=== PATIENT | female | born 1995 | race Caucasian/White ===

== ENCOUNTER → 2020-09-30 | Outpatient (CLI) | payer OTHER ==
[2020-09-30 14:00] LABS: HEMOGLOBIN 14.1 gm/dl (12.3-15.3); RED BLOOD COUNT 4.77 M/UL (4.00-5.10); WHITE BLOOD COUNT 8.9 K/UL (4.5-11.0)
[2020-09-30 14:29] LABS: BUN/CREATININE RATIO 15 (0-10)
== END ==
LOC: LAB 13:09
DX: R53.83 Other fatigue (principal); E66.3 Overweight
CPT/HCPCS: 36415; 80053; 80061; 82607; 83540; 84439; 84443; 85027; 93005

== ENCOUNTER 2021-07-24 23:03 | Emergency (ER) | payer OTHER ==
[2021-07-24 23:44] LABS: HEMOGLOBIN 14.7 gm/dl (12.3-15.3); RED BLOOD COUNT 4.88 M/UL (4.00-5.10); WHITE BLOOD COUNT 15.3 K/UL (4.5-11.0)
[2021-07-25 00:03] LABS: BUN/CREATININE RATIO 11 (0-10)
[2021-07-25] MEDS ORDERED: ZOFRAN4 MG PO (04:36)
[2021-07-25] MEDS ORDERED: OMNICEF 300 MG300 MG PO (04:36)
[2021-07-25] MEDS ORDERED: FLOMAX 0.4 MG0.4 MG PO (04:36)
[2021-07-25] MEDS ORDERED: TORADOL 10 MG T10 MG PO (04:36)
== END 2021-07-25 06:31 | disposition home or self-care (01) ==
LOC: ER1 23:03
PROVIDERS: Physician Assistant Medical
DX: N13.2 Hydronephrosis with renal and ureteral calculous obstruction (principal); N30.90 Cystitis, unspecified without hematuria
CPT/HCPCS: 76830; 80053; 81001; 83605; 84703; 85025; 96374; 96375; 96376; 99284; J0696; J1885; J2270; J2405; Q9967

== ENCOUNTER → 2021-09-05 | Outpatient (CLI) | payer OTHER ==
[~2021-09-05] MED LIST: FLOMAX 0.4 MG0.4 MG PO; OMNICEF 300 MG300 MG PO; TORADOL 10 MG T10 MG PO; ZOFRAN4 MG PO
== END ==
LOC: CT 13:00
DX: N13.2 Hydronephrosis with renal and ureteral calculous obstruction (principal)
CPT/HCPCS: Q9967